=== PATIENT | male | born 1985 | race Caucasian/White ===

== ENCOUNTER 2019-02-28 22:20 | Emergency (ER) | payer SELFPAY ==
[2019-02-28 22:28] VITALS: BP 150/99; PULSE 96; TEMP 99.1; BMI 26.6
--- NOTE | 2019-03-01 00:03 | PDOC ---
History of Present Illness - General Chief Complaint: Chest Pain Stated Complaint: CHEST PAINS/DIFFICULTY BREATHING Time Seen by Provider: 02/28/19 23:31 History Source: Patient Exam Limitations: No Limitations - History of Present Illness Initial Comments: 02/28/19 23:43 33 yo male no sig pmh, maltese speaking (imm[place]rated to the [place] 14 years ago) presents to the ED for sudden onset SOB, chest palpitations and chest pressure. 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 Pt admits to greater than 10 year hx of 6 beers per day. Pt never saw a doctor since coming to the . Pt denies fhx of cardiac disease or sudden , exertional symptoms, diaphoresis, N/V/F/C, recent changes in health, recent travel, current CP/Palpitations. Denies recent increase in stress Past History - Past Medical History Allergies/Adverse Reactions: Allergies Allergy/AdvReac Type Severity Reaction Status Date / Time No Known Allergies Allergy Verified 02/28/19 22:28 COPD: No - Suicide/Smoking/Psychosocial Hx Smoking History: Never smoked Review of Systems - Review of Systems Constitutional: No: Chills, Fever Respiratory: No: Shortness of Breath Cardiac (ROS): No: Chest Pain (resolved), Edema, Palpitations (resolved), Syncope ABD/GI: No: Constipated, Diarrhea, Nausea, Vomiting : No: Burning, Dysuria, Discharge, Frequency, Flank Pain, Hematuria Musculoskeletal: No: Back Pain Integumentary: No: Change in Color Neurological: No: Headache, Numbness, Paresthesia, Weakness Psychiatric: No: Stressors, Sleep Pattern Change, Emotional Problems *Physical Exam - Vital Signs Last Vital Signs Temp Pulse Resp BP Pulse Ox 99.1 F 96 H 18 150/99 96 02/28/19 22:25 02/28/19 22:25 02/28/19 22:25 02/28/19 22:25 02/28/19 22:25 - Physical Exam General Appearance: Yes: Nourished, Appropriately Dressed. No: Apparent Distress HEENT: positive: EOMI Neck: positive: Supple. negative: Carotid bruit Respiratory/Chest: positive: Lungs Clear, Normal Breath Sounds. negative: Respiratory Distress, Crackles, Rales, Rhonchi, Stridor, Wheezing Cardiovascular: positive: Regular Rhythm, Regular Rate, S1, S2. negative: Edema , JVD, Murmur Vascular Pulses: Dorsalis-Pedis (R): 4+, Doralis-Pedis (L): 4+ Gastrointestinal/Abdominal: positive: Flat, Soft. negative: Pulsatile Mass, Distended, Guarding, Rebound, Tenderness Musculoskeletal: negative: CVA Tenderness Extremity: positive: Normal Capillary Refill, Normal Inspection, Normal Range of Motion Integumentary: positive: Normal Color, Dry, Warm Neurologic: positive: Fully Oriented, Alert, Normal Mood/Affect, Normal Response , Motor Strength 01/01 ED Treatment Course - LABORATORY CBC & Chemistry Diagram: 03/01/19 00:45 03/01/19 00:45 Medical Decision Making - Medical Decision Making 03/01/19 01:39 33 yo male no sig pmh, maltese speaking ([place] to the [place] 14 years ago) presents to the ED for sudden onset SOB, chest palpitations and chest pressure. 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 Pt admits to greater than 10 year hx of 6 beers per day. Pt never saw a doctor since coming to the . Pt denies fhx of cardiac disease or sudden , exertional symptoms, diaphoresis, N/V/F/C, recent changes in health, recent travel, current CP/Palpitations. Denies recent increase in stress Vitals WNL No active complaints. NAD, AOX3 and ambulates in the ED without difficulty CXR shows no acute path EKG NSR without ST changes DDX INLAT: ACS (fhx or sig risk factors, HPI unlikely for cardiac cause) anxiety , arrhythmia Labs neg for electrolyte ab, anemia, WBC elevation Trops neg Pt likely suffering from anxiety attack. Pt will be given f/u with out pt PCP [place] on need to reduce drinking habits Pt understands and agrees with plan *DC/Admit/Observation/Transfer Diagnosis at time of Disposition: Palpitations - Discharge Dispostion Disposition: HOME Condition at time of disposition: Stable Decision to Admit order: No - Referrals Referrals: [facility] [place] [place] [Provider Group] - Patient Instructions Printed Discharge Instructions: DI for Atypical Chest Pain, DI for Anxiety -- Adult Additional Instructions: Please make an appointment and see the Primary Doctor referred to you within the next 48 hours. Your ekg, blood work and chest x ray were all normal and there is no current significant concern for heart pathology at this time. Return to the ER for new or concerning symptoms including but not limited to: chest pain, palpitations, inability to eat or drink. Thank you Print Language: DIVEHI - Post Discharge Activity
[2019-03-01 01:04] LABS: BASO % 0.5 % (0-2.0); EOS % 0.1 % (0-4.5); HEMATOCRIT 45.3 % (35.4-49); HEMOGLOBIN 15.4 GM/dL (11.7-16.9); LYMPH % 24.4 % (8-40); MCH 30.3 pg (25.7-33.7); MCHC 33.9 g/dl (32.0-35.9); MEAN CELL VOLUME 89.4 fl (80-96); MEAN PLT VOLUME 9.2 fl (7.5-11.1); MONO % 6.7 % (3.8-10.2); NEUT % 68.3 % (42.8-82.8); PLATELET COUNT 250 K/MM3 (134-434); RBC 5.07 M/mm3 (4.00-5.60); RDW 12.8 % (11.9-15.9)
[2019-03-01 01:34] LABS: ALBUMIN 4.3 g/dl (3.4-5.0); ALK PHOS 63 U/L (45-117); ANION GAP 11 MMOL/L (8-16); BILIRUBIN,TOTAL 0.8 mg/dL (0.2-1); BLOOD UREA NITROGEN 12.5 mg/dL (7-18); CALCIUM 8.9 mg/dL (8.5-10.1); CHLORIDE 104 mmol/L (98-107); CO2 24 mmol/L (21-32); GLUCOSE,RANDOM 91 mg/dL (74-106); POTASSIUM 3.5 mmol/L (3.5-5.1); SGOT/AST 23 U/L (15-37); SGPT/ALT 43 U/L (13-61); SODIUM 139 mmol/L (136-145); TOT PROT 7.7 g/dl (6.4-8.2)
--- NOTE | 2019-03-01 01:52 | PDOC ---
Documentation entered by Krishan Ruggiero SCRIBE, acting as scribe for Amber Herbert MD. Amber Herbert MD: This documentation has been prepared by the Monik de leon Elijah, SCRIBE, under my direction and personally reviewed by me in its entirety. I confirm that the documentation accurately reflects all work, treatment, procedures, and medical decision making performed by me. Attending Attestation - Resident Resident Name: Fab Sawyer - ED Attending Attestation I have performed the following: I have examined & evaluated the patient, The case was reviewed & discussed with the resident, I agree w/resident's findings & plan - HPI HPI: 03/01/19 00:27 Patient is a 33 year old male with no reported significant pmh who presents to the ED with sudden onset of SOB, Chest palpitations, and chest pressure beginning x15 hours ago. 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 The pain lasted for 10 minutes and subsided , and the patient reported that this happened 4 more times today prompting his visit to the ED. At this moment in time the patient appears to be asymptomatic. Denies: Exertional Symptoms, Nausea, Vomiting, Diarrhea, Fever, chills, and recent travel Allergies: NKA Social: 10 years of 6 Beers per day, Patient Reports never seeing a doctor - Physicial Exam PE: 03/01/19 01:07 GENERAL: Awake, alert, and fully oriented, in no acute distress HEAD: No signs of trauma EYES: PERRLA, EOMI, sclera anicteric, conjunctiva clear ENT: Auricles normal inspection, hearing grossly normal, nares patent, oropharynx clear without exudates. Moist mucosa NECK: Normal ROM, supple, no lymphadenopathy, JVD, or masses LUNGS: Breath sounds equal, clear to auscultation bilaterally. No wheezes, and no crackles HEART: Regular rate and rhythm, normal S1 and S2, no murmurs, rubs or gallops ABDOMEN: Soft, nontender, normoactive bowel sounds. No guarding, no rebound. No masses EXTREMITIES: Normal range of motion, no edema. No clubbing or cyanosis. No cords, erythema, or tenderness NEUROLOGICAL: Cranial nerves II through XII grossly intact. Normal speech, normal gait SKIN: Warm, Dry, normal turgor, no rashes or lesions noted. - Medical Decision Making 03/01/19 01:33 cxr napd,normal cardiac silhouette,no pts,no effusion,mild elevation rt kairssa diaphragm ekg is nsr with no st elevations or depressions 03/01/19 01:50 labs reviewed ,neg trop,normal cbc and no electrolyte abnormality glucose and and renal function are normal imp atypical chest pain plan d/c home
--- NOTE | 2019-03-06 11:44 | EKG ---
Test Reason : Blood Pressure : / mmHG Vent. Rate : 088 BPM Atrial Rate : 088 BPM P-R Int : 142 ms QRS Dur : 086 ms QT Int : 340 ms P-R-T Axes : 058 019 025 degrees QTc Int : 411 ms NORMAL SINUS RHYTHM WITH SINUS ARRHYTHMIA NORMAL ECG NO PREVIOUS ECGS AVAILABLE Confirmed by CHETNA ROSALES MD ([id number]) on 03/06/2019 11:44:18 AM Referred By: Confirmed By:CHETNA ROSALES MD
== END 2019-03-01 02:20 | disposition home or self-care (01) ==
LOC: JER 22:20
DX: R07.9 Chest pain, unspecified (principal); F41.9 Anxiety disorder, unspecified
CPT/HCPCS: 36415; 71046-TC-FY; 80053; 82550; 82553; 84484; 85025; 93005; 93010; 99281-25

== ENCOUNTER 2019-03-04 16:30 | Emergency (ER) | payer SELFPAY ==
[2019-03-04 16:38] VITALS: BMI 27.4
--- NOTE | 2019-03-04 16:54 | PDOC ---
History of Present Illness - General Chief Complaint: Chest Pain Stated Complaint: CHEST PAIN Time Seen by Provider: 03/04/19 16:52 History Source: Patient Exam Limitations: No Limitations, Language Barrier - History of Present Illness Initial Comments: David Fuentes is a 33 yo M who denies having any past medical hx presents to the [facility] ER with left sided chest pain. He states he was seen here in this ER two days prior for the exact same chest pain. He states the pain is pressure like, rated 8/10 in severity, associated with diaphoresis but no nausea or vomiting, and comes on both at rest and when the patient is doing physical activity. The patient denies any radiation of the chest pain. He has not tried taking any medication for the pain. The patient endorses occasional SOB associated with the chest pain. He states there is one specific spot on his chest where the pain is the worst and it is reproducible to touch. He states his father had a left leg DVT at one point. The patient denies recent travel/surgeries/immobility, lower extremity edema, calf pain or tenderness, tobacco use, hormone use, or personal history of thrombosis. PCP: None PSH: None reported Social Hx: Drinks 6 beers daily. Denies smoking or other substance usage. Allergies: NKA, NKDA Past History - Past Medical History Allergies/Adverse Reactions: Allergies Allergy/AdvReac Type Severity Reaction Status Date / Time No Known Allergies Allergy Verified 03/04/19 16:38 Home Medications: Ambulatory Orders NK [No Known Home Medication] 03/04/19 COPD: No - Suicide/Smoking/Psychosocial Hx Smoking History: Never smoked Review of Systems - Review of Systems Able to Perform ROS?: Yes Comments:: CONSTITUTIONAL: Absent: fever, no chills, no fatigue EYES: Absent: visual changes ENT: Absent: ear pain, no sore throat CARDIOVASCULAR: Present: chest pain. Absent: No palpitations RESPIRATORY: Present: SOB Absent: cough GI: Absent: abdominal pain, no nausea, no vomiting, no constipation, no diarrhea GENITOURINARY: Absent: dysuria, no frequency, no hematuria MUSKULOSKELETAL: Present: Arthralgia Absent: back pain, no myalgia SKIN: Absent: rash NEURO: Absent: headache *Physical Exam - Vital Signs Last Vital Signs Temp Pulse Resp BP Pulse Ox 97.9 F 86 18 133/82 99 03/04/19 16:36 03/04/19 16:36 03/04/19 16:36 03/04/19 16:36 03/04/19 16:36 - Physical Exam Comments: GENERAL: Well-appearing, well-nourished. No apparent distress. HEENT: Normocephalic, atraumatic. PERRL, EOM intact. CARDIOVASCULAR: Normal S1, S2. Regular rate and rhythm. PULMONARY: No evidence of respiratory distress. Lungs clear to auscultation bilaterally. No wheezing, rales or rhonchi. ABDOMEN: Soft, non-distended, non-tender. EXTREMITIES: Normal ROM in all four extremities. No gross deformities. SKIN: Warm, dry. No rash NEUROLOGICAL: No focal neurological deficits. ED Treatment Course - LABORATORY CBC & Chemistry Diagram: 03/04/19 17:56 03/04/19 17:56 - RADIOLOGY Radiograph Interpretation: CXR: Chest: Chest pain 2 views of the chest reveal clear lungs, normal mediastinum and sharp angles. The bones and soft tissues are intact. There is distention of the splenic flexure area. Since the prior study of 2018, there is no change of an adverse nature. Impression: Clear lungs. Distended bowel left upper quadrant. No free air. Medical Decision Making - Medical Decision Making David Fuentes is a 33 yo M who denies having any past medical hx presents to the [facility] ER with left sided chest pain. He states he was seen here in this ER two days prior for the exact same chest pain. He states the pain is pressure like, rated 8/10 in severity, associated with diaphoresis but no nausea or vomiting, and comes on both at rest and when the patient is doing physical activity. The patient denies any radiation of the chest pain. He has not tried taking any medication for the pain. The patient endorses occasional SOB associated with the chest pain. He states there is one specific spot on his chest where the pain is the worst and it is reproducible to touch. He states his father had a left leg DVT at one point. The patient denies recent travel/surgeries/immobility, lower extremity edema, calf pain or tenderness, tobacco use, hormone use, or personal history of thrombosis. Vital Signs Temp Pulse Resp BP Pulse Ox 97.9 F 86 18 133/82 99 03/04/19 16:36 03/04/19 16:36 03/04/19 16:36 03/04/19 16:36 03/04/19 16:36 DDx IBNLT: ACS/NV, arrhythmia, electrolyte/metabolic disturbance, PE, MSK chest pain/costocondritis, pericarditis, myocarditis, pneumothorax, PNA, pleurisy Plan: Labs, EKG, CXR, analgesia, IV hydration, re-assess. MDM: Patient is low risk and PERC negative but given his 2nd visit in one week for the same chest pain and his father's hx of DVT we will obtain a Dimer to try and r/o PE. EKG: NS rate of 67. There is an inverted T wave in lead 3. There is also a prominent S wave in lead 1 and a Q wave in lead 3 - AKA there is an S1Q3T3. No ST elevations or depressions. Labs: Cbc, Cmp unremarkable. D-Dimer: Negative CXR: Unremarkable. Disposition: Likely home after negative D-dimer and normal CXR Patient will be sigend out to night team pending Dimer, CXR, and final disposition. *DC/Admit/Observation/Transfer Diagnosis at time of Disposition: Anxiety, Muscular chest pain - Discharge Dispostion Disposition: HOME Condition at time of disposition: Stable - Referrals - Patient Instructions Printed Discharge Instructions: DI for Atypical Chest Pain, DI for Anxiety -- Adult Additional Instructions: Please make an appointment and see the Primary Doctor referred to you within the next 48 hours. Take over the counter Tylenol or Motrin for your pain as needed. Your ekg, chest x ray, blood work including D - Dimer for pulmonary embolism were all normal and there is no current significant concern for heart pathology at this time. Return to the ER for new or concerning symptoms including but not limited to: chest pain, palpitations, inability to eat or drink. Thank you. Print Language: GREEK - Post Discharge Activity
--- NOTE | 2019-03-04 17:02 | PDOC ---
Attending Attestation - Resident Resident Name: Augustine Earl - ED Attending Attestation I have performed the following: I have examined & evaluated the patient, The case was reviewed & discussed with the resident, I agree w/resident's findings & plan, Exceptions are as noted - HPI HPI: 03/04/19 17:49 David Fuentes is a 33 yo M no significant PMH p/w left sided chest pain. Pt had this pain 4 days ago while at work, pain resolved with rest. Pt had no more pain until today While at work today, he again had pain He states the pain is pressure like, rated 8/10 in severity, associated with diaphoresis but no nausea or vomiting, and comes on both at rest and when the patient is doing physical activity. No radiation of pain Occasional SOB The patient denies recent travel/surgeries/immobility, lower extremity edema, calf pain or tenderness, tobacco use, or personal history of thrombosis. PCP: None PSH: None reported Social Hx: Drinks 6 beers daily. Denies smoking or other substance usage. Allergies: NKA, NKDA 03/04/19 18:26 03/04/19 18:28 - Physicial Exam PE: 03/04/19 17:02 GENERAL: The patient is in no acute distress. ENT: Ears normal, nares patent, oropharynx clear without exudates. Moist mucous membranes. NECK: Normal range of motion, supple LUNGS: Breath sounds equal, clear to auscultation bilaterally. No wheezes, and no crackles. HEART:Regular rate and rhythm, normal S1 and S2 without murmur, rub or gallop. ABDOMEN: Soft, nontender, normoactive bowel sounds. EXTREMITIES: Normal range of motion, no edema. NEUROLOGICAL: Cranial nerves II through XII grossly intact. Normal speech. No focal neurological deficits. SKIN: Warm, Dry, normal turgor, no rashes or lesions noted. - Medical Decision Making 03/04/19 17:50 Twelve-lead EKG was performed and reviewed by me. There is normal sinus rhythm with a normal rate of 67 bpm. The axis is normal. The intervals are normal. There are no ST elevation. T wave inversion III, Q wave in III 03/04/19 18:26 Pt presents with chest pain Differential includes cardiac ischemia unlikely, pe, pneumonia, pneumothorax, pleural effusion, costochondritis, pericarditis, GERD. Will do: Labs CXR Motrin Re Assess Signed out to overnight team pending labs and CXR
[2019-03-04] MEDS ORDERED: SODIUM CHLORIDE 1,000 ML IV STA (17:09)
[2019-03-04] MEDS ORDERED: IBUPROFEN 400 MG TABLET (FP) PO ONE (17:10)
[2019-03-04] MEDS ORDERED: IBUPROFEN 600 MG TABLET (FP) PO ONE ×2 (18:02)
[2019-03-04 18:09] LABS: BASO % 0.7 % (0-2.0); EOS % 2.1 % (0-4.5); HEMATOCRIT 47.9 % (35.4-49); HEMOGLOBIN 15.6 GM/dL (11.7-16.9); LYMPH % 25.6 % (8-40); MCH 29.8 pg (25.7-33.7); MCHC 32.6 g/dl (32.0-35.9); MEAN CELL VOLUME 91.2 fl (80-96); MEAN PLT VOLUME 9.5 fl (7.5-11.1); MONO % 6.7 % (3.8-10.2); NEUT % 64.9 % (42.8-82.8); RBC 5.25 M/mm3 (4.00-5.60); RDW 12.7 % (11.9-15.9); WHITE BLOOD COUNT 7.6 K/mm3 (4.0-10.0)
[2019-03-04 18:52] LABS: PLATELET COUNT 238 K/MM3 (134-434)
[2019-03-04 19:05] LABS: ALBUMIN 4.4 g/dl (3.4-5.0); ALK PHOS 68 U/L (45-117); ANION GAP 10 MMOL/L (8-16); BILIRUBIN,TOTAL 0.5 mg/dL (0.2-1); BLOOD UREA NITROGEN 11.7 mg/dL (7-18); CALCIUM 9.2 mg/dL (8.5-10.1); CHLORIDE 105 mmol/L (98-107); CO2 24 mmol/L (21-32); CREATININE 0.8 mg/dL (0.55-1.3); GLUCOSE,RANDOM 90 mg/dL (74-106); LIPASE 221 U/L (73-393); MAGNESIUM 2.5 mg/dL (1.8-2.4); POTASSIUM 4.1 mmol/L (3.5-5.1); SGOT/AST 18 U/L (15-37); SGPT/ALT 48 U/L (13-61); SODIUM 139 mmol/L (136-145); TOT PROT 8.1 g/dl (6.4-8.2)
[2019-03-04 19:11] LABS: INR 0.99 (0.83-1.09); PROTHROMBIN TIME (PATIENT) 11.7 SEC (9.7-13.0)
[2019-03-04 19:58] VITALS: BP 133/87; PULSE 62; TEMP 99.4
--- NOTE | 2019-03-04 20:19 | PDOC ---
*Physical Exam - Vital Signs Last Vital Signs Temp Pulse Resp BP Pulse Ox 99.4 F 62 18 133/87 95 03/04/19 19:10 03/04/19 19:10 03/04/19 19:10 03/04/19 19:10 03/04/19 19:10 ED Treatment Course - LABORATORY CBC & Chemistry Diagram: 03/04/19 17:56 03/04/19 17:56 - ADDITIONAL ORDERS Additional order review: Laboratory Results 03/04/19 03/04/19 03/04/19 17:56 17:56 17:55 PT with INR 11.70 INR 0.99 D-Dimer < 215 Sodium 139 Potassium 4.1 Chloride 105 Carbon Dioxide 24 Anion Gap 10 BUN 11.7 Creatinine 0.8 Est GFR (CKD-EPI)AfAm 136.03 Est GFR (CKD-EPI)NonAf 117.37 Random Glucose 90 Calcium 9.2 Magnesium 2.5 H Total Bilirubin 0.5 AST 18 ALT 48 Alkaline Phosphatase 68 Troponin I < 0.02 B-Natriuretic Peptide 16.0 Total Protein 8.1 Albumin 4.4 Lipase 221 03/04/19 17:56 RBC 5.25 MCV 91.2 MCHC 32.6 RDW 12.7 MPV 9.5 Neutrophils % 64.9 Lymphocytes % 25.6 Monocytes % 6.7 Eosinophils % 2.1 D Basophils % 0.7 - Medications Given in the ED: ED Medications Discontinued Medications Generic Name Dose Route Start Last Admin Trade Name Freq PRN Reason Stop Dose Admin Sodium Chloride 1,000 mls @ 1,000 mls/hr 03/04/19 17:09 03/04/19 18:05 Normal Saline - IV 03/04/19 18:08 1,000 mls/hr ASDIR STA Administration Ibuprofen 800 mg 03/04/19 17:10 03/04/19 18:05 Motrin - PO 03/04/19 17:11 800 mg ONCE ONE Administration Medical Decision Making - Medical Decision Making 03/04/19 20:11 S/O from day team Pt presents for Left sided CP. Pt to be DC home if Pending CXR and D dimer for low risk PE r/o are neg D dimer neg, CXR shows no acute path, no pneumo, no effusions, heart borders WNL Likely MSK pain due to reproducible pain and persistent/worse with repetitive moments Pt will be DC home once again with PCP referral Pt understands and agrees with plan. Strict return precautions given *DC/Admit/Observation/Transfer Diagnosis at time of Disposition: Anxiety, Muscular chest pain - Discharge Dispostion Disposition: HOME Condition at time of disposition: Stable Decision to Admit order: No - Referrals - Patient Instructions Printed Discharge Instructions: DI for Atypical Chest Pain, DI for Anxiety -- Adult Additional Instructions: Please make an appointment and see the Primary Doctor referred to you within the next 48 hours. Take over the counter Tylenol or Motrin for your pain as needed. Your ekg, chest x ray, blood work including D - Dimer for pulmonary embolism were all normal and there is no current significant concern for heart pathology at this time. Return to the ER for new or concerning symptoms including but not limited to: chest pain, palpitations, inability to eat or drink. Thank you. Print Language: WELSH - Post Discharge Activity
--- NOTE | 2019-03-05 13:32 | EKG ---
Test Reason : Blood Pressure : / mmHG Vent. Rate : 067 BPM Atrial Rate : 067 BPM P-R Int : 144 ms QRS Dur : 098 ms QT Int : 354 ms P-R-T Axes : 021 032 017 degrees QTc Int : 374 ms NORMAL SINUS RHYTHM NORMAL ECG WHEN COMPARED WITH ECG OF 28-FEB-2019 22:22, NO SIGNIFICANT CHANGE WAS FOUND Confirmed by MD HERNANDEZ MOYSES ([id number]) on 03/05/2019 1:31:30 PM Referred By: Confirmed By:EULOGIO HERNANDEZ MD
== END 2019-03-04 20:49 | disposition home or self-care (01) ==
LOC: JER 16:30
PROC: 3E0337Z Introduction of Electrolytic and Water Balance Substance into Peripheral Vein, Percutaneous Approach (ICD-10-PCS; principal; 2019-03-04)
DX: R07.9 Chest pain, unspecified (principal); F41.9 Anxiety disorder, unspecified
CPT/HCPCS: 36415; 71046-TC-FY; 80053; 83690; 83735; 83880; 84484; 85025; 85379; 85610; 93005; 93010; 99283-25; J7030